=== PATIENT | female | born 1950 | race Caucasian/White ===

== ENCOUNTER 2016-09-15 08:40 | Emergency (ER) | payer OTHER ==
[~2016-09-15 08:40] MED LIST: EFFEXOR25 MG PO; HYCET1 ML PO; HYDROCHLOROTH12.5 MG PO; LISINOPRIL10 MG PO; METFORMIN HCL500 MG PO; NORVASC5 MG PO; OMEPRAZOLE20 M1 PO; RANITIDINE ACID75 MG PO; SIMVASTATIN5 MG PO; TRAMADOL HCL50 MG PO; TRAZODONE HCL50 MG PO; VENLAFAXINE H37.5 M1 PO
--- NOTE | 2016-09-15 10:13 | DIAGNOSTIC IMAGING REPORT ---
PROCEDURE: XR CHEST 2 VIEW INDICATION: COUGH TECHNIQUE: PA and lateral views. COMPARISON: Compared to chest x-rays on 01/08/2015 01/05/2013. FINDINGS: Minor parenchymal scarring and/or fat pad at the left lung base. Lung are otherwise clear. Heart and mediastinum are normal. Mild degenerative change of the thoracic spine IMPRESSION: 1. Negative chest.
--- NOTE | 2016-09-15 13:55 | DIAGNOSTIC IMAGING REPORT ---
PROCEDURE: CTA THORAX WITH CONTRAST INDICATION: Shortness of breath. Hypoxia. Elevated D-dimer. History of non-Hodgkins lymphoma. TECHNIQUE: 97 ml of Isovue 370 was injected intravenously and axial images were obtained of the entire thorax with 3D sagittal and coronal MIP reconstructions. COMPARISON: Comparison is made to chest x-ray earlier today (09/15/2016). FINDINGS: Lungs are clear with minor parenchymal scarring. Pulmonary vessels are normal and there is no evidence of pulmonary embolus. Heart and mediastinum are normal. There are moderate degenerative changes of the thoracic spine. Portions of the upper abdomen are seen. Status post cholecystectomy (surgical clips). IMPRESSION: 1. Normal CT pulmonary arteriogram. No evidence of pulmonary embolus. 2. Findings discussed with Dr. Vijay Dc. All CT scans at this facility use dose modulation, iterative reconstruction, and/or weight-based dosing when appropriate to reduce radiation dose to as low as reasonably achievable.
--- NOTE | 2016-09-15 15:11 | ED CLINICAL REPORT ---
Clinical Report - Physicians/Mid Levels [facility] [address] [place] [address] 09/15/2016 8:41 Patient: RICK SELBY Time Seen: 0902. Arrived- By private vehicle. Historian- patient. HISTORY OF PRESENT ILLNESS Chief Complaint: COUGH. This started past few days and is still present (staying the same). It was abrupt in onset and has been intermittent but is not gone now. The illness is described as moderate. The patient has had sputum production, a cough, difficulty breathing and nasal congestion. No chest discomfort or pain, fever or chills. (Also with diarrhea. States she has nausea and abdominal discomfort but is located to the abdominal wall and only when coughing. No leg swelling, hx of DVT/PE, recent trauma, surgeries, or coughing up blood.). Additional history - No known contact with a sick individual. No recent travel. Similar symptoms previously: None. Recent medical care: Not recently seen/assessed. REVIEW OF SYSTEMS The patient has had nausea and diarrhea. No vomiting, pedal edema, calf pain or skin rash. All systems otherwise negative, except as recorded above. PAST HISTORY See nurses notes. Medications: Lisinopril Oral. Marijuana. MetFORMIN HCl Oral. Omeprazole Oral. Simvastatin Oral. TraZODone HCl Oral. Venlafaxine HCl ER Oral. Allergies: None. SOCIAL HISTORY Never smoker. Not exposed to second-hand smoke at home. No alcohol use or drug use. No recent travel. Is a local resident. ADDITIONAL NOTES The nursing notes have been reviewed. PHYSICAL EXAM Vital Signs: 09/15/2016 08:48 BP: 193/66. HR: 80. RR: 20. O2 saturation: 92%. Temp: 98.2 F. Pain level now: 0/10. Oxygen saturation: on oxygen- oxygen saturation low. Appearance: Alert. No acute distress. Eyes: Pupils equal, round and reactive to light. Eyes normal inspection. ENT: Ears normal. Nose normal. Pharynx normal. Uvula midline. Neck: Normal inspection. Neck supple. CVS: Normal heart rate and rhythm. Heart sounds normal. Pulses normal. Respiratory: No respiratory distress. Breath sounds normal. No rales, rhonchi or wheezes. Abdomen: Soft and nontender. No organomegaly. Skin: Skin warm and dry. Normal skin color. No rash. Normal skin turgor. Extremities: Extremities exhibit normal ROM. No lower extremity edema. Neuro: Oriented X 3. No motor deficit. No sensory deficit. LABS, X-RAYS, AND EKG EKG: No acute ischemia. Normal EKG. Rate: 74. Normal P waves. Normal ALAN. Normal QRS complex. Normal axis. Normal ST and T waves, QT and QTc. The study has been interpreted contemporaneously. The study has been independently viewed by me. The EKG appears to be a good tracing. I agree with and confirm the computer reading of the EKG. Chest X-ray: (PROCEDURE: XR CHEST 2 VIEW INDICATION: COUGH TECHNIQUE: PA and lateral views. COMPARISON: Compared to chest x-rays on 01/08/2015 01/05/2013. FINDINGS: Minor parenchymal scarring and/or fat pad at the left lung base. Lung are otherwise clear. Heart and mediastinum are normal. Mild degenerative change of the thoracic spine IMPRESSION: 1. Negative chest.). Chest CT: (PROCEDURE: CTA THORAX WITH CONTRAST INDICATION: Shortness of breath. Hypoxia. Elevated D-dimer. History of non-Hodgkins lymphoma. TECHNIQUE: 97 ml of Isovue 370 was injected intravenously and axial images were obtained of the entire thorax with 3D sagittal and coronal MIP reconstructions. COMPARISON: Comparison is made to chest x-ray earlier today (09/15/2016). FINDINGS: Lungs are clear with minor parenchymal scarring. Pulmonary vessels are normal and there is no evidence of pulmonary embolus. Heart and mediastinum are normal. There are moderate degenerative changes of the thoracic spine. Portions of the upper abdomen are seen. Status post cholecystectomy (surgical clips). IMPRESSION: 1. Normal CT pulmonary arteriogram. No evidence of pulmonary embolus.). The study was independently viewed by me and interpreted by the radiologist. The study was discussed with the radiologist (via phone and pacs). Laboratory Tests: UA-Culture if indicated: (CORINNE: 09/15/2016 09:25) ( MsgRcvd 09/15/2016 09:53) Final results Test Result Flag Units (Reference) URINE COLOR CUCO URINE APPEARANCE CLEAR URINE GLUCOSE NEGATIVE (NEGATIVE) URINE BILIRUBIN NEGATIVE (NEGATIVE) URINE KETONE 1+ (NEGATIVE) URINE SPECIFIC GRAVITY >= 1.030 (1.010-1.030) URINE PH 6.0 (5.0-8.0) URINE PROTEIN 3+ (NEGATIVE) URINE UROBILINOGEN 0.2 EU/dL (0.2-1.0) URINE NITRITE NEGATIVE (NEGATIVE) URINE BLOOD 3+ (NEGATIVE) URINE LEUK ESTERASE NEGATIVE (NEGATIVE) URINE RBC 1-3 rbc/hpf (0-1) URINE WBC 1-3 wbc/hpf (0-1) URINE EPITHELIAL CELLS 0-1 EPI/hpf (0-5) URINE BACTERIA MODERATE (2+ TO 3+) (NONE SEEN) URINE COMMENT CULTURE INDICATED 5-10 HYALINE CASTS/lpf0-1 FINE GRANULAR CAST/lpfURINE CULTURES ARE SET-UP BASED ON THE FOLLOWING CRITERIA:POSITIVE NITRITEPOSITIVE LEUKOCYTE ESTERASEGREATER THAN 10 WHITE BLOOD CELLSMODERATE (2+) OR GREATER BACTERIA CBC w Diff: (CORINNE: 09/15/2016 09:50) ( [facility] [place] [facility] Final results Test Result Flag Units (Reference) WHITE BLOOD COUNT 6.6 K/uL (4.5-11.5) RED BLOOD COUNT 4.47 M/uL (4.00-5.20) HEMOGLOBIN 14.6 gm/dL (12.0-16.0) HEMATOCRIT 43.8 % (36.0-46.0) MEAN CELL VOLUME 98 fL (80-100) MEAN CORPUSCULAR HGB 33 pg (26-34) MEAN CORPUSCULAR HGB CONC 33 g/dL (31-37) RED CELL DISTRIBUTION WIDTH 12.8 % (11.6-14.8) PLATELET COUNT 118 L K/uL (150-400) NEUTROPHIL % 78.5 H % (50-75) LYMPH % 12.9 L % (25-40) MONO % 8.3 % (3-14) EOSINOPHIL % 0 % (0-4) BASOPHIL % 0.3 % (0-2) [id number]: (CORINNE: 09/15/2016 09:50) ( [facility] [place] 09/15/2016 10:41) Final results Test Result Flag Units (Reference) D-DIMER QUANTITATIVE 1.63 H ug/mLFEU (0.27-0.52) The primary value of this quantitative assay relates toits negative predictive value (i.e. exclusion) of pulmonaryembolism/deep vein thrombosis/DIC.Elevated levels of d-dimer may also occur with:, age, cancer, inflammation, liver disease,post-op, infection, hematoma, coronary disease, peripheralarteriopathy, bleeding disorders and thrombolytic treatment.Results should be correlated with other clinical andradiological data.Testing Methodology: Latex Immunoassay BNP: (CORINNE: 09/15/2016 09:50) ( [facility] [place] 09/15/2016 10:34) Final results Test Result Flag Units (Reference) B-TYPE NATRIURETIC PEPTIDE 80.4 pg/ml (5-100) CMP: (CORINNE: 09/15/2016 09:50) ( WvgRcvd 09/15/2016 10:22) Final results Test Result Flag Units (Reference) GLUCOSE 166 H mg/dL (70-110) BUN 17 mg/dL (7-18) CREATININE 1.2 mg/dL (0.6-1.3) Estimated GFR 48.07 mL/min Estimated GFR- 58.26 mL/min Note: Persistent reduction over 3 months in eGFR<60 mL/min/1.73 m2 defines CKD. Patients with eGFR values>=60 mL/min/1.73 m2 may also have CKD if evidence ofpersistent proteinuria. Additional information may be foundat www.kidney.org. SODIUM 138 mmol/L (136-145) POTASSIUM 3.3 L mmol/L (3.5-5.1) CHLORIDE 101 mmol/L (98-107) CARBON DIOXIDE 29 mmol/L (21-32) CALCIUM 10.9 H mg/dL (8.5-10.1) TOTAL PROTEIN 8.1 g/dL (6.4-8.2) ALBUMIN 4.1 g/dL (3.3-5.0) BILIRUBIN, TOTAL 0.6 mg/dL (0.0-1.0) ALKALINE PHOSPHATASE 94 U/L (46-116) AST (SGOT) 41 H U/L (15-37) ALT (SGPT) 57 U/L (12-78) LIPASE 105 U/L (73-393) TROPONIN I <0.05 ng/mL (0.00-1.5) TROPONIN REFERENCE RANGE:<0.1 NEGATIVE0.1-1.5 INDETERMINANT>1.5 POSITIVE Culture, Urine: (CORINNE: 09/15/2016 09:25) ( MsgRcvd 09/17/2016 10:57) Final results Test Result Flag Units (Reference) CULTURE, URINE DATE: 09/17/16 NO SIGNIFICANT ISOLATION: NO SIGNIFICANT ISOLATION PRELIM REPORT: FINAL REPORT . PROGRESS AND PROCEDURES Course of Care: The patient is a pleasant 66-year-old female presenting for evaluation of multiple medical concerns. Primarily, will be concerned about the patient's shortness of breath. At this time differential diagnosis includes bronchitis, acute asthma exacerbation, pulmonary embolism, or acute myocardial infarction or congestive heart failure. Patient be evaluated with laboratory studies including d-dimer, chest x-ray, EKG, and troponin as well as BNP. Patient is agreeable to treatment plan after discussion with patient in regards to d-dimer as well as CTA. All questions have been answered. Breathing treatment has been ordered. Patient reports moderate amount of improvement with her symptoms. No other abnormalities a patient's workup is noted. Troponin is noted to be normal. Chest x-ray does not show any signs of acute consolidation. EKG is unremarkable. The patient's d-dimer was elevated however and a CT scan of the abdomen for evaluation of pulmonary embolism as been ordered. CT is not show any signs of pulmonary embolism or thoracic aortic dissection. Patient is resting in bed and in no acute distress. I discussion with patient's findings are in the emergency department. Urinalysis appears to have 2-3+ bacteria. First dose of antibiotics have been provided however we'll await further culture results for prescriptions. (Of note, this note is being completed after the results have returned. No evidence of growth. Did not fill patient needs further antibiotic therapy.) patient likely with bronchitis or viral type etiology of her symptoms. With gastric intestinal symptoms as well as upper respiratory tract and symptoms, would feel viral etiology the most likely culprit. Patient is nontoxic and in no acute distress. Vital signs here in the emergency department and noted to be unremarkable. Do not fill patient is given myocardial infarction or pulmonary embolism. I discussion patient in regards to her workup here in the emergency department including diagnosis, home care, follow-up, and return precautions. All questions have been answered. The patient expressed understanding of these instructions and was agreeable to them. Disposition: Discharged. Condition: good. CLINICAL IMPRESSION 09/15/2016 14:33 BP: 175/76. HR: 102. RR: 20. O2 saturation: 98%. Temp: 98.4 F. Pain level now: 0/10. 09/15/2016 08:48 BP: 193/66. HR: 80. RR: 20. O2 saturation: 92%. Temp: 98.2 F. Pain level now: 0/10. Diarrhea (acute). Blood pressure normal. Oxygen saturation normal. Acute viral bronchitis. Acute bronchospasm Essential hypertension. INSTRUCTIONS Warnings: GENERAL WARNINGS: Return or contact your physician immediately if your condition worsens or changes unexpectedly, if not improving as expected, or if other problems arise. Specifically return if pain, vomiting, bleeding, breathing difficulty or fever. Your Current Medications: CONTINUE TAKING THE FOLLOWING MEDICATIONS: Lisinopril Oral. Marijuana*. MetFORMIN HCl Oral. Omeprazole Oral. Simvastatin Oral. TraZODone HCl Oral. Venlafaxine HCl ER Oral. Prescription Medications: Zofran (orally disintegrating tablets) 4 mg: take 1 orally every 8 hours as needed for nausea and vomiting. Dispense ten (10). No refill. Substitution is permissible. Albuterol HFA oral inhaler: inhale 1-2 puffs via spacer every 4 hours as needed for wheezing, difficulty breathing or shortness of breath. Dispense one (1) unit. OTC Medications: Acetaminophen (available over the counter): take according to label instructions. Motrin (available over the counter): take according to label instructions. Follow-up: Return to the emergency department as needed. Follow up with your doctor in three days. Reason for referral: recheck today's concerns. Summary of care provided to patient via paper. Screening today revealed the patient's blood pressure to be in the hypertensive range. The patient should follow up with a primary care provider for blood pressure management. Understanding of the discharge instructions verbalized by patient. (Electronically signed by Vijay Dc Dr. 09/21/2016 8:57)
--- NOTE | 2016-09-15 15:11 | ED ORDER SUMMARY ---
..... Patient: RICK SELBY OrderSheet [facility] VisitID: [id number] [address] [place] [address] 66y, F Registration Date/Time: 09/15/2016 ORDER SHEET Weight: 88.4 kg (stated) Allergies: None GENERAL ORDERS: Chest 2V Urgent (09:09/15/2016 Elizabeth Holguin) (Ack 9:05 oerner) (10:38 JSanders R.N.) Pigskin Trimmer (Continuous) (cough, SOB) (09:09/15/2016 Elizabeth Holguin) (9:17 KHoerner) EKG - ER (SOB) Stat (:09/15/2016 Elizabeth Holguin) (Ack 9:17 DAVYoerner) (9:23 KHoerner) CBC w Diff Urgent (:09/15/2016 Elizabeth Holguin) (Ack 9:17 Amanda) (10:00 LWhalen R.N.) CMP Urgent (:09/15/2016 Elizabeth Holguin) (Ack 9:17 DAVYoerner) (10:00 LWhalen R.N.) UA-Culture if indicated Urgent (:09/15/2016 Elizabeth Holguin) (Ack 9:17 DAVYoerner) (9:28 JSanders R.N.) Troponin-I Urgent (:09/15/2016 Elizabeth Holguin) (Ack 9:17 Bridgettraaliyah) (10:00 LWhalen R.N.) BNP Urgent (:09/15/2016 Elizabeth Holguin) (Ack 9:17 Amanda) (10:00 LWhalen R.N.) Lipase Urgent (:09/15/2016 Elizabeth Holguin) (Ack 9:17 Bridgettrner) (10:01 LWhalen R.N.) Pulse oximeter (:09/15/2016 Elizabeth Holguin) (9:17 KHoerner) D-Dimer Urgent (10:09/15/2016 Elizabeth Holguin) (Ack 10:28 KHoerner) (10:37 Mayito R.NChelsi) CTA Thorax w Cont (No) (gfr 48) Urgent (11:41 09/15/2016 Elizabeth Holguin) (Ack 11:43 Amanda) (13:33 Avelina) MEDICATION ORDERS: DuoNeb Neb Tx 1 unit dose (NOW) (09:19 09/15/2016 Elizabeth Holguin) (Ack 9:20 Amanda) (9:28 Giovanni) Albuterol Neb Tx 5 mg (once now) (14:03 09/15/2016 Elizabeth Holguin) (14:07 Giovanni) Ciprofloxacin PO 500 mg (NOW) (14:22 09/15/2016 Elizabeth Holguin) (14:33 Mayito Pedersen.NChelsi) IV FLUIDS: IV Saline Lock (09:15 09/15/2016 Elizabeth Holguin) (Ack 10:00 Nuha R.NChelsi) (12:54 Shell Pedersen.NChelsi) ORDER SHEET NOTES: [Electronically signed by Odessa Zamorano R.N. (07:09 09/18/2016)] [Electronically signed by Vijay Dc Dr. (08:57 09/21/2016)] [Electronically locked/signed by Odesas Zamorano R.N. (07:09 09/18/2016)]
--- NOTE | 2016-09-15 15:11 | ED ORDER SUMMARY ---
..... Patient: RICK SELBY OrderSheet [facility] VisitID: [id number] [address] [place] [address] 66y, F Registration Date/Time: 09/15/2016 ORDER SHEET Weight: 88.4 kg (stated) Allergies: None GENERAL ORDERS: Chest 2V Urgent (09:09/15/2016 Elizabeth Holguin) (Ack 9:05 oerner) (10:38 JSanders R.N.) Bird Sitter (Continuous) (cough, SOB) (09:09/15/2016 Elizabeth Holguin) (9:17 KHoerner) EKG - ER (SOB) Stat (:09/15/2016 Elizabeth Holguin) (Ack 9:17 DAVYoerner) (9:23 KHoerner) CBC w Diff Urgent (:09/15/2016 Elizabeth Holguin) (Ack 9:17 Amanda) (10:00 LWhalen R.N.) CMP Urgent (:09/15/2016 Elizabeth Holguin) (Ack 9:17 DAVYoerner) (10:00 LWhalen R.N.) UA-Culture if indicated Urgent (:09/15/2016 Elizabeth Holguin) (Ack 9:17 DAVYoerner) (9:28 JSanders R.N.) Troponin-I Urgent (:09/15/2016 Elizabeth Holguin) (Ack 9:17 Brigdettraaliyah) (10:00 LWhalen R.N.) BNP Urgent (:09/15/2016 Elizabeth Holguin) (Ack 9:17 Amanda) (10:00 LWhalen R.N.) Lipase Urgent (:09/15/2016 Elizabeth Holguin) (Ack 9:17 Bridgettrner) (10:01 LWhalen R.N.) Pulse oximeter (:09/15/2016 Elizabeth Holguin) (9:17 KHoerner) D-Dimer Urgent (10:09/15/2016 Elizabeth Holguin) (Ack 10:28 KHoerner) (10:37 Mayito R.NChelsi) CTA Thorax w Cont (No) (gfr 48) Urgent (11:41 09/15/2016 Elizabeth Holguin) (Ack 11:43 Amanda) (13:33 Avelina) MEDICATION ORDERS: DuoNeb Neb Tx 1 unit dose (NOW) (09:19 09/15/2016 Elizabeth Holguin) (Ack 9:20 Amanda) (9:28 Giovanni) Albuterol Neb Tx 5 mg (once now) (14:03 09/15/2016 Elizabeth Holguin) (14:07 Giovanni) Ciprofloxacin PO 500 mg (NOW) (14:22 09/15/2016 Elizabeth Holguin) (14:33 Mayito Pedersen.NChelsi) IV FLUIDS: IV Saline Lock (09:15 09/15/2016 Elizabeth Holguin) (Ack 10:00 Nuha R.NChelsi) (12:54 Shell Pedersen.NChelsi) ORDER SHEET NOTES: [Electronically signed by Odessa Zamorano R.N. (07:09 09/18/2016)] [Electronically signed by Vijay Dc Dr. (08:57 09/21/2016)] [Electronically locked/signed by Odessa Zamorano R.N. (07:09 09/18/2016)]
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
--- NOTE | 2016-09-21 08:57 | ED MED RECONCILIATION SUMMARY ---
Patient: RICK SELBY Medication Reconciliation Report [facility] VisitID: [id number] [address] [place] [address] 66y, F Registration Date/Time: 09/15/2016 Weight: 88.4 kg Height/Length: 61 in. BMI: 36.8 ALLERGIES: None The patient's Home Medications are listed below: CONTINUE TAKING THE FOLLOWING MEDICATIONS: Lisinopril Oral Marijuana MetFORMIN HCl Oral Omeprazole Oral Simvastatin Oral TraZODone HCl Oral Venlafaxine HCl ER Oral The source(s) of the original Home Medication information: Not obtained. The following Medications were given to the patient in the Emergency Department: Duoneb [Neb Tx] Neb TX 1 unit dose, administered: 09/15/2016 9:28:00 AM Albuterol [Neb Tx] Neb TX 2 unit dose, administered: 09/15/2016 2:07:00 PM Ciprofloxacin [PO] PO 500 mg, administered: 09/15/2016 2:33:00 PM The following Medications were prescribed to the patient: Acetaminophen (available over the counter): take according to label instructions. -- Vijay Dc Dr. Motrin (available over the counter): take according to label instructions. -- Vijay Dc Dr. Zofran (orally disintegrating tablets) 4 mg: take 1 orally every 8 hours as needed for nausea and vomiting. Dispense ten (10). No refill. Substitution is permissible. -- Vijay Dc Dr. Albuterol HFA oral inhaler: inhale 1-2 puffs via spacer every 4 hours as needed for wheezing, difficulty breathing or shortness of breath. Dispense one (1) unit. -- Vijay Dc Dr.
--- NOTE | 2016-09-21 08:57 | ED MAR SUMMARY ---
..... Medication Administration Record [facility] [address] [place] [address] Patient: RICK SELBY Visit ID: [id number] 66y, F Weight: 88.4 kg Height/Length: 61 in BMI: 36.8 ALLERGIES: None Given 09:28 09/15/2016 Fred Valadez, Medication Administered: DUONEB [NEB TX] (IPRATROPIUM-ALBUTEROL), Dose: 1 unit dose Neb TX. Medication Ordered: DuoNeb Neb Tx 1 unit dose (NOW). Given 14:07 09/15/2016 Fred Valadez, Medication Administered: ALBUTEROL [NEB TX], Dose: 2 unit dose Neb TX. Medication Ordered: Albuterol Neb Tx 5 mg (once now). Given 14:33 09/15/2016 Odessa Zamorano R.N. Medication Administered: CIPROFLOXACIN [PO] (CIPROFLOXACIN), Dose: 500 mg Tablets PO. Medication Ordered: Ciprofloxacin PO 500 mg (NOW).
--- NOTE | 2016-09-21 08:57 | ED MAR SUMMARY ---
..... Medication Administration Record [facility] [address] [place] [address] Patient: RICK SELBY Visit ID: [id number] 66y, F Weight: 88.4 kg Height/Length: 61 in BMI: 36.8 ALLERGIES: None Given 09:28 09/15/2016 Fred Valadez, Medication Administered: DUONEB [NEB TX] (IPRATROPIUM-ALBUTEROL), Dose: 1 unit dose Neb TX. Medication Ordered: DuoNeb Neb Tx 1 unit dose (NOW). Given 14:07 09/15/2016 Fred Valadez, Medication Administered: ALBUTEROL [NEB TX], Dose: 2 unit dose Neb TX. Medication Ordered: Albuterol Neb Tx 5 mg (once now). Given 14:33 09/15/2016 Odessa Zamorano R.N. Medication Administered: CIPROFLOXACIN [PO] (CIPROFLOXACIN), Dose: 500 mg Tablets PO. Medication Ordered: Ciprofloxacin PO 500 mg (NOW).
--- NOTE | 2016-09-21 08:57 | ED MED RECONCILIATION SUMMARY ---
Patient: RICK SELBY Medication Reconciliation Report [facility] VisitID: [id number] [address] [place] [address] 66y, F Registration Date/Time: 09/15/2016 Weight: 88.4 kg Height/Length: 61 in. BMI: 36.8 ALLERGIES: None The patient's Home Medications are listed below: CONTINUE TAKING THE FOLLOWING MEDICATIONS: Lisinopril Oral Marijuana MetFORMIN HCl Oral Omeprazole Oral Simvastatin Oral TraZODone HCl Oral Venlafaxine HCl ER Oral The source(s) of the original Home Medication information: Not obtained. The following Medications were given to the patient in the Emergency Department: Duoneb [Neb Tx] Neb TX 1 unit dose, administered: 09/15/2016 9:28:00 AM Albuterol [Neb Tx] Neb TX 2 unit dose, administered: 09/15/2016 2:07:00 PM Ciprofloxacin [PO] PO 500 mg, administered: 09/15/2016 2:33:00 PM The following Medications were prescribed to the patient: Acetaminophen (available over the counter): take according to label instructions. -- Vijay Dc Dr. Motrin (available over the counter): take according to label instructions. -- Vijay Dc Dr. Zofran (orally disintegrating tablets) 4 mg: take 1 orally every 8 hours as needed for nausea and vomiting. Dispense ten (10). No refill. Substitution is permissible. -- Vijay Dc Dr. Albuterol HFA oral inhaler: inhale 1-2 puffs via spacer every 4 hours as needed for wheezing, difficulty breathing or shortness of breath. Dispense one (1) unit. -- Vijay Dc Dr.
--- NOTE | 2016-09-21 08:57 | ED DISCHARGE INSTRUCTIONS ---
Patient: RICK SELBY General Instructions [facility] VisitID: [id number] [address] [place] [address] 66y, F Registration Date/Time: 09/15/2016 09/15/2016 14:33 BP: 175/76. HR: 102. RR: 20. O2 saturation: 98%. Temp: 98.4 F. Pain level now: 0/10. 09/15/2016 08:48 BP: 193/66. HR: 80. RR: 20. O2 saturation: 92%. Temp: 98.2 F. Pain level now: 0/10. Diarrhea (acute). Blood pressure normal. Oxygen saturation normal. Acute viral bronchitis. Acute bronchospasm Essential hypertension. INSTRUCTIONS Warnings: GENERAL WARNINGS: Return or contact your physician immediately if your condition worsens or changes unexpectedly, if not improving as expected, or if other problems arise. Specifically return if pain, vomiting, bleeding, breathing difficulty or fever. Your Current Medications: CONTINUE TAKING THE FOLLOWING MEDICATIONS: Lisinopril Oral. Marijuana*. MetFORMIN HCl Oral. Omeprazole Oral. Simvastatin Oral. TraZODone HCl Oral. Venlafaxine HCl ER Oral. Prescription Medications: Zofran (orally disintegrating tablets) 4 mg: take 1 orally every 8 hours as needed for nausea and vomiting. Dispense ten (10). No refill. Substitution is permissible. Albuterol HFA oral inhaler: inhale 1-2 puffs via spacer every 4 hours as needed for wheezing, difficulty breathing or shortness of breath. Dispense one (1) unit. OTC Medications: Acetaminophen (available over the counter): take according to label instructions. Motrin (available over the counter): take according to label instructions. Follow-up: Return to the emergency department as needed. Follow up with your doctor in three days. Reason for referral: recheck today's concerns. Summary of care provided to patient via paper. Screening today revealed the patient's blood pressure to be in the hypertensive range. The patient should follow up with a primary care provider for blood pressure management. Understanding of the discharge instructions verbalized by patient. ADDITIONAL INFORMATION Bronchitis, Viral (Adult: No Abx) You have a viral bronchitis. This illness is contagious during the first few days and is spread through the air by coughing and sneezing, or by direct contact (touching the sick person and then touching your own eyes, nose, or mouth). Most viral illnesses resolve within 10-14 days with rest and simple home remedies, although they may sometimes last for several weeks. Antibiotics will not kill a virus and are generally not prescribed for this condition. Home Care: If symptoms are severe, rest at home for the first 2-3 days. When resuming activity, don't let yourself become overly tired. Do not smoke and avoid the smoke of others. You may use acetaminophen (Tylenol) or ibuprofen (Motrin, Advil) to control fever or pain, unless another pain medicine was prescribed. [NOTE: If you have chronic liver or kidney disease or ever had a stomach ulcer or GI bleeding, talk with your doctor before using these medicines.] (Aspirin should never be used in anyone under 18 years of age who is ill with a fever. It may cause severe liver damage.) Your appetite may be poor so a light diet is fine. Avoid dehydration by drinking 6-8 glasses of fluids per day (water, sport drinks such as Gatorade, juices, tea, soup, etc.). Extra fluids will help loosen secretions in the nose and lung. [id number] cold medicines will not shorten the length of the illness, but may be helpful for cough (Robitussin DM), sore throat (Chloraseptic lozenges or spray), nasal and sinus congestion (Actifed or Sudafed). [NOTE: Do not use decongestants if you have high blood pressure.] Follow Up with your doctor or as directed by our staff if you are not improving over the next week. NOTE: If you are age 65 or older, or if you have chronic asthma or COPD, we recommend a PNEUMOCOCCAL VACCINATION every five years and a yearly INFLUENZAVACCINATION (FLU-SHOT) every . Ask your doctor about this. If you had an X-ray, a radiologist will review it. You will be notified of any new findings that may affect your care.] Get Prompt Medical Attention if any of the following occur: Fever over 100.4F (38.0C) for more than three days Trouble breathing, wheezing or pain with breathing Coughing up blood or increased amounts of colored sputum Weakness, drowsiness, headache, facial pain, ear pain or a stiff neck Bronchospasm (Adult) Bronchospasm occurs when the airways (bronchial tubes) go into spasm and contract. This makes it hard to breathe and causes wheezing (a high-pitched whistling sound). Bronchospasm can also cause frequent coughing without the wheezing sound. Bronchospasm is due to irritation, inflammation or allergic reaction of the airways. People with asthma get bronchospasm. However, not everyone with bronchospasm has asthma. Being exposed to harmful fumes, a recent case of bronchitis, or a flare-up of chronic emphysema (COPD) may cause the airways to spasm. An episode of bronchospasm may last 7-14 days. Medicine may be prescribed to relax the airways and prevent wheezing. Antibiotics will be prescribed only if your doctor thinks there is a bacterial infection. Antibiotics do not help a viral infection. Home Care: Drink lots of water or other fluids (at least 10 glasses a day) during an attack. This will loosen lung secretions and make it easier to breathe. If you have heart or kidney disease, check with your doctor before you drink extra amounts of fluids. Take prescribed medicine exactly at the times advised. If you have a hand-held inhaler or aerosol breathing medicine, do not use it more than once every four hours, unless told to do so. If prescribed an antibiotic or prednisone, take all of the medicine even if you are feeling better after a few days. Do not smoke. Avoid being exposed to the smoke of others. If you were given an inhaler, use it exactly as directed. If you need to use it more often than prescribed, your condition may be getting worse. Contact your doctor or this facility. Follow Up With Your Doctor, Or As Directed. [ NOTE: If you are age 65 or older, or if you have chronic asthma or COPD, we recommend a PNEUMOCOCCAL VACCINATION every five years and a yearly INFLUENZA VACCINATION (FLU-SHOT) every . Ask your doctor about this.] Get Prompt Medical Attention If Any Of The Following Occur: Increased wheezing or shortness of breath Need to use your inhalers more often than usual without relief Fever of 100.4F (38C) or higher, or as directed by your healthcare provider Coughing up lots of dark-colored or bloody sputum (mucus) Chest pain with each breath You do not start to improve within 24 hours High Blood Pressure --Established High Blood Pressure (Hypertension) is a chronic disease. The cause is unknown in most cases. It can usually be controlled with lifestyle changes and/or medicines. Symptoms of high blood pressure may include headache, dizziness, visual changes, chest pain and shortness of breath. Sometimes it causes no symptoms at all. However, even if there are no symptoms, untreated high blood pressure increases the risk of heart attack, also known as acute myocardial infarction, or AMI, and stroke. It is a serious health risk and should not be ignored. A normal blood pressure is 120/80 or less. The first (top) number is the "systolic" pressure. The second (bottom) number is the "diastolic" pressure. Hypertension exists when either the top number is 140 or higher, OR the bottom number is 90 or higher on repeated measurements. Home Care: All patients with high blood pressure should do the following to lower their pressure. If you are on medicines, then these methods may reduce or eliminate your need for medicines in the future. Begin a weight loss program if you are overweight. Reduce your salt intake. Avoid high salt foods (olives, pickles, smoked meats, salted potato chips, etc.). Do not add salt to your food at the table. Use only small amounts of salt when cooking. Begin an exercise program. Discuss with your doctor what type of exercise program would be best for you. It doesn't have to be difficult. Even brisk walking for 20 minutes three times a week is a good form of exercise. Avoid medicines which contain heart stimulants. This includes many cold and sinus decongestant pills and sprays as well as diet pills. Check the warnings about hypertension on the label. Stimulants such as amphetamine or cocaine could be lethal for someone with hypertension. Never take these. Limit your caffeine intake or switch to caffeine-free products. Stop smoking. If you are a long-time smoker, this can be hard. Enroll in a stop-smoking program to improve your chance of success. Learning how to handle stress better is an important part of any program to lower blood pressure. Learn about relaxation methods such as meditation, yoga or biofeedback. If medicines were prescribed, take them exactly as directed. Missing doses may cause your blood pressure get out of control. Consider buying an automatic blood pressure machine (available at most pharmacies). Use this to monitor your blood pressure at home and report the results to your doctor. Follow Up: Regular visits to your own physician for blood pressure checks and medicine adjustment is an important part of your care. Make a follow-up appointment as directed by our staff. Get Prompt Medical Attention if any of the following occur: Chest pain or shortness of breath Severe headache Throbbing or rushing sound in the ears Nosebleed Sudden severe abdominal pain Extreme drowsiness, confusion or fainting Dizziness or vertigo (dizziness with spinning sensation) Weakness of an arm or leg or one side of the face Difficulty with speech or vision Diarrhea, Uncertain Cause (Adult, Report Pending) Diarrhea has several possible causes. Commonstomach fluis caused by a virus. Food poisoning, bacteria or parasites are other causes for diarrhea. Only diarrhea caused by bacteria or parasites requires treatment with an antibiotic. Diarrhea from a virus or food poisoning improves with simple home treatment. A stool sample is needed to make the diagnosis of an infection with bacteria or parasites. Up to three stool specimens may be required to diagnose This may take up to two days to get the result. It may be necessary to wait until the stool test is complete to make the diagnosis and select the best antibiotic to prescribe. Home Care: If symptoms are severe, rest at home for the next 24 hours or until you are feeling better. You may use acetaminophen (Tylenol) or ibuprofen (Motrin, Advil) to control fever, unless another medicine was prescribed. [NOTE: If you have chronic liver or kidney disease or ever had a stomach ulcer or GI bleeding, talk with your doctor before using these medicines.] (Aspirin should never be used in anyone under 18 years of age who is ill with a fever. It may cause severe liver damage.) Avoid tobacco, caffeine and alcohol, which may worsen your symptoms. If anti-diarrhea medicine was prescribed, take this only as directed. Sometimes anti-diarrhea medicine can make your condition worse if the cause is an infectious diarrhea. Therefore, anti-diarrhea medicine should not be taken for this condition unless advised by your doctor. During The First 12-24 Hours follow the diet below: BEVERAGES: Sport drinks like Gatorade, soft drinks without caffeine; moisés jose manuel, mineral water (plain or flavored), decaffeinated tea and coffee. SOUPS: Clear broth, consomm and bouillon DESSERTS: Plain gelatin (Jell-O), popsicles and fruit juice bars. During The Next 24 Hours you may add the following to the above: Hot cereal, plain toast, bread, rolls, crackers Plain noodles, rice, mashed potatoes, chicken noodle or rice soup Unsweetened canned fruit (avoid pineapple), bananas Limit fat intake to less than 15 grams per day by avoiding margarine, butter, oils, mayonnaise, sauces, gravies, fried foods, peanut butter, meat, poultry and fish. Limit fiber; avoid raw or cooked vegetables, fresh fruits (except bananas) and bran cereals. Limit caffeine and chocolate. No spices or seasonings except salt. During The Next 24 Hours Gradually resume a normal diet, as you feel better and your symptoms lessen. Follow Up with your doctor or as advised if you are not improving over the next two days. If you were asked to bring a specimen from home, bring the sample on the day of collection. You may call in 2 days (or as directed) for the results. Get Prompt Medical Attention if any of the following occur: Increasing abdominal pain or constant lower right abdominal pain Continued vomiting (unable to keep liquids down) Frequent diarrhea (more than 5 times a day) Blood in vomit or stool (black or red color) Reduced oral intake Dark urine, reduced urine output Weakness, dizziness, fainting Drowsiness, confusion, stiff neck or seizure Fever of 100.4F (38C) oral or higher, not better with fever medication New rash Ondansetron Oral disintegrating tablet What is this medicine? ONDANSETRON (on JACQUELINE se caro) is used to treat nausea and vomiting caused by chemotherapy. It is also used to prevent or treat nausea and vomiting after surgery. How should I use this medicine? These tablets are made to dissolve in the mouth. Do not try to push the tablet through the foil backing. With dry hands, peel away the foil backing and gently remove the tablet. Place the tablet in the mouth and allow it to dissolve, then swallow. While you may take these tablets with water, it is not necessary to do so. Talk to your director of social media marketing regarding the use of this medicine in children. Special care may be needed. What side effects may I notice from receiving this medicine? Side effects that you should report to your doctor or health career development consultant as soon as possible: allergic reactions like skin rash, itching or hives, swelling of the face, lips, or tongue breathing problems dizziness fast or irregular heartbeat feeling faint or lightheaded, falls fever and chills swelling of the hands and feet tightness in the chest Side effects that usually do not require medical attention (report to your doctor or health career development consultant if they continue or are bothersome): constipation or diarrhea headache What may interact with this medicine? Do not take this medicine with any of the following medications: -apomorphine -cisapride -dofetilide -dronedarone -pimozide -thioridazine -ziprasidone This medicine may also interact with the following medications: -carbamazepine -phenytoin -rifampicin -tramadol -other medicines that prolong the QT interval (cause an abnormal heart rhythm) What if I miss a dose? If you miss a dose, take it as soon as you can. If it is almost time for your next dose, take only that dose. Do not take double or extra doses. Where should I keep my medicine? Keep out of the reach of children. Store between 2 and 30 degrees C (36 and 86 degrees F). Throw away any unused medicine after the expiration date. What should I tell my health care provider before I take this medicine? They need to know if you have any of these conditions: heart disease history of irregular heartbeat liver disease low levels of magnesium or potassium in the blood an unusual or allergic reaction to ondansetron, granisetron, other medicines, foods, dyes, or preservatives or trying to get breast-feeding What should I watch for while using this medicine? Check with your doctor or health career development consultant as soon as you can if you have any sign of an allergic reaction. Albuterol Sulfate Pressurized inhalation, suspension What is this medicine? ALBUTEROL (al BYOO ter ole) is a bronchodilator. It helps open up the airways in your lungs to make it easier to breathe. This medicine is used to treat and to prevent bronchospasm. How should I use this medicine? This medicine is for inhalation through the mouth. Follow the directions on your prescription label. Take your medicine at regular intervals. Do not use more often than directed. Make sure that you are using your inhaler correctly. Ask you doctor or health care provider if you have any questions. Talk to your director of social media marketing regarding the use of this medicine in children. Special care may be needed. What side effects may I notice from receiving this medicine? Side effects that you should report to your doctor or health career development consultant as soon as possible: allergic reactions like skin rash, itching or hives, swelling of the face, lips, or tongue breathing problems chest pain feeling faint or lightheaded, falls high blood pressure irregular heartbeat fever muscle cramps or weakness pain, tingling, numbness in the hands or feet vomiting Side effects that usually do not require medical attention (report to your doctor or health career development consultant if they continue or are bothersome): cough difficulty sleeping headache nervousness or trembling stomach upset stuffy or runny nose throat irritation unusual taste What may interact with this medicine? anti-infectives like chloroquine and pentamidine caffeine cisapride diuretics medicines for colds medicines for depression or for emotional or psychotic conditions medicines for weight loss including some herbal products methadone some antibiotics like clarithromycin, erythromycin, levofloxacin, and linezolid some heart medicines steroid hormones like dexamethasone, cortisone, hydrocortisone theophylline thyroid hormones What if I miss a dose? If you miss a dose, use it as soon as you can. If it is almost time for your next dose, use only that dose. Do not use double or extra doses. Where should I keep my medicine? Keep out of the reach of children. Store at room temperature between 15 and 30 degrees C (59 and 86 degrees F). The contents are under pressure and may burst when exposed to heat or flame. Do not freeze. This medicine does not work as well if it is too cold. Throw away any unused medicine after the expiration date. Inhalers need to be thrown away after the labeled number of puffs have been used or by the expiration date; whichever comes first. Ventolin HFA should be thrown away 12 months after removing from foil pouch. Check the instructions that come with your medicine. What should I tell my health care provider before I take this medicine? They need to know if you have any of the following conditions: diabetes heart disease or irregular heartbeat high blood pressure pheochromocytoma seizures thyroid disease an unusual or allergic reaction to albuterol, levalbuterol, sulfites, other medicines, foods, dyes, or preservatives or trying to get breast-feeding What should I watch for while using this medicine? Tell your doctor or health career development consultant if your symptoms do not improve. Do not use extra albuterol. If your asthma or bronchitis gets worse while you are using this medicine, call your doctor right away. If your mouth gets dry try chewing sugarless gum or sucking hard candy. Drink water as directed. You have been given the following additional information: Bronchitis, No Antibiotic (Adult) Bronchospasm (Adult) Hypertension, Established Diarrhea, Unk Cause (Adult) Report Pendg Ondansetron Oral disintegrating tablet Albuterol Sulfate Pressurized inhalation, suspension (Electronically signed by Vijay Dc Dr. 09/21/2016 8:57)
== END 2016-09-15 15:30 | disposition home or self-care (01) ==
LOC: ED SRH 08:40
DX: J20.8 Acute bronchitis due to other specified organisms (principal); R19.7 Diarrhea, unspecified; I10 Essential (primary) hypertension; Z79.899 Other long term (current) drug therapy; Z79.84 Long term (current) use of oral hypoglycemic drugs
CPT/HCPCS: 90004; 90100; 90469; 90616; 91320; 91556; 92235; 95059